=== PATIENT | female | born 1955 | race Two or more races ===

== ENCOUNTER → 2021-06-12 | Outpatient (CLI) | payer MEDICARE, OTHER ==
--- NOTE | 2021-06-12 12:33 | RAD ---
Bone densitometry 06/12/2021 11:02 AM Indication: Reason: SCREENING / Spl. Instructions: / History: Comparison Study: None. Discussion: Bone Densitometry was performed with dual photon absorption of the lumbar spine and pro ximal right femur. Lumbar Spine: Bone average density is 1.11g/cm2 for L1-L4. T-Score is -0.6. Right femoral neck: Bone average density is 0.874g/cm2. T-Score is -1.2. IMPRESSION: Osteopenia with reduced bone mineral density, right femoral neck. Note: Definitions established by the [employer]: Normal: T-score is -1.0 or above. Osteopenia: T-score is between -1.0 and -2.5. Osteoporosis: T-score is -2.5 or below. Electronically signed by: Francisco Linares MD (06/12/2021 12:30 PM) [id number]
== END ==
LOC: MAMMO 09:34
PROVIDERS: ATTEND Family Medicine
DX: M85.88 Other specified disorders of bone density and structure, other site (principal); Z78.0 Asymptomatic menopausal state
CPT/HCPCS: 77080